=== PATIENT | female | born 1995 | race Caucasian/White ===

== ENCOUNTER 2023-10-05 05:30 | Observation (INO) | payer OTHER, SELFPAY ==
--- NOTE | ~2023-10-05 | CT_ITS ---
EXAMINATION: CT abdomen pelvis wo con DATE: 10/05/2023 09:45 INDICATION: Right upper quadrant abdominal pain TECHNIQUE: Computed tomography (CT) of the abdomen and pelvis was performed without intravenous contr ast. Automated exposure control and iterative reconstruction technique were employed. The dose-length product was 846.27 mGy-cm. COMPARISON: None FINDINGS: Lung bases are clear. Heart size is normal. No pericardial or pleural effusion. Liver, spleen, pancre as, bilateral adrenal glands and kidneys are normal. A few small calcified gallstones in the nondilat ed gallbladder. There is some gallbladder wall thickening but no evident pericholecystic inflammatory stranding. No bowel obstruction. Small calcified appendicoliths within the proximal aspect of the ot herwise normal appendix with no periappendiceal inflammation presenting to suggest acute appendicitis . Tiny dystrophic calcification at the fundus of the otherwise normal anteverted uterus. Bladder and bilateral adnexa are unremarkable. No free intraperitoneal gas or fluid. No pathologically enlarged a bdominal or pelvic lymphadenopathy. Scarring along the anterior pelvic wall suggestive of prior tegan te section. Bones are unremarkable. IMPRESSION: 1. Cholelithiasis with some wall thickening of the nondilated gallbladder which is also without surro unding inflammatory stranding. Findings suggest cholecystitis which could be either chronic, early ac inupiat or resolving acute. Correlate clinically and given the absence of gallbladder distention would co nsider HIDA scan for more definitive determination for ongoing cystic duct obstruction. Reviewed, dictated and finalized at location A. IMPRESSION: 1. Cholelithiasis with some wall thickening of the nondilated gallbladder which is also without surrounding inflammatory stranding. Findings suggest cholecyst itis which could be either chronic, early acute or resolving acute. Correlate c linically and given the absence of gallbladder distention would consider HIDA s can for more definitive determination for ongoing cystic duct obstruction.
--- NOTE | ~2023-10-05 | US_ITS ---
EXAMINATION: US abdomen limited DATE: 10/05/2023 09:41 INDICATION: Right upper quadrant abdominal pain TECHNIQUE: Multiple grayscale and Doppler ultrasound images of the abdomen were obtained. COMPARISON: None FINDINGS: Increase is normal. The abdominal aorta and visualized proximal to mid inferior vena cava are normal. Liver has normal echogenicity and contour, with a smooth surface. No liver lesion identified. No int rahepatic biliary duct dilation suspected. Portal venous flow was seen in the hepatopetal, normal dir ection and has normal Doppler waveform. Shadowing gallstones are seen within the gallbladder. The gal lbladder is not dilated but there is wall thickening and trace amount of pericholecystic fluid. Sonog raphic Maya sign was reported as positive by the digital sales assistant.Common bile duct is normal in caliber measuring up to 3 mm. IMPRESSION: 1. Cholelithiasis with positive sonographic Maya's on, mild gallbladder wall thickening and trace a mount of pericholecystic fluid suspicious for acute cholecystitis. The gallbladder is not however dil ated which would typically be seen with calculus cholecystitis. Could consider HIDA scan to assess fo r ongoing cystic duct obstruction. Reviewed, dictated and finalized at location A. IMPRESSION: 1. Cholelithiasis with positive sonographic Maya's on, mild gallbladder wall thickening and trace amount of pericholecystic fluid suspicious for acute adolfo cystitis. The gallbladder is not however dilated which would typically be seen with calculus cholecystitis. Could consider HIDA scan to assess for ongoing cys tic duct obstruction.
[2023-10-05 05:51] VITALS: BP 118/79; PULSE 69; RESP 12; O2SAT 100
--- NOTE | 2023-10-05 07:13 | ED.BACK ---
HPI - Back Pain/Injury General Chief Complaint: Back Pain/Injury Stated Complaint: back pain Time Seen by Provider: 10/05/23 06:55 History of Present Illness HPI Narrative: 28-year-old female presents to the emergency department for evaluation of right flank pain. Patient states that she did have prior history of flank pain last year was worked up for kidney stone versus kidney infection. Patient states that the symptoms started this morning. Patient denies any prior history of gallbladder disease. Related Data Home Medications Medication Instructions Recorded Confirmed No Home Medications 10/05/23 10/05/23 Allergies Allergy/AdvReac Type Severity Reaction Status Date / Time No Known Allergies Allergy Verified 10/05/23 05:50 Review of Systems Review of Systems: All systems reviewed & are unremarkable except as noted in HPI and below PMFSH Social History Social History Smoking status: Never smoker Second hand tobacco smoke exposure: No Alcohol intake: never Substance use: never Substance use type: does not use Do You Feel Safe in your Home?: Yes Lack of Transportation: YES Lack of Food: Never True Current Housing: I Have Housing Concerned About Future Housing: No Difficulty Paying Gas/Electric Bills: No Difficulty Paying for Meds: No Currently Unemployed: No Education: Bachelor's Degree Difficulty w/ Childcare or Family Care: No Spiritual care concerns: No Exam Narrative: APPEARANCE: Well appearing, no pain, no distress, well-nourished. HEAD: normocephalic, atraumatic. EYES: PERRLA/EOMI, conjunctivae clear. NOSE: Normal no drainage EARS:TMS clear with good light reflex. THROAT: Pharynx clear, no exudate. NECK: Supple. No adenopathy, no masses. RESPIRATORY: Airway patent, respirations nonlabored. Clear to auscultation bilaterally, no rales, rhonchi, wheezing. CARDIOVASCULAR: Regular rate and rhythm without murmurs rubs or gallops. ABDOMINAL: Some right flank tenderness to palpation, right upper quadrant tenderness to palpation MUSCULOSKELETAL: Moves all extremities. Strength/ROM intact, No edema, No calf tenderness. NEURO: Alert. Cranial nerves II through XII intact. SKIN: Warm, dry. Normal Color Course Course Emergency Course: Patient was admitted to surgery for suspected acute cholecystitis. Vital Signs Vital signs: Vital Signs Pulse Rate 69 10/05/23 05:51 Respiratory Rate 12 10/05/23 05:51 Blood Pressure 118/79 10/05/23 05:51 Pulse Oximetry 100 10/05/23 05:51 Temperature 97.5 F L 10/05/23 14:00 Pulse Rate 58 L 10/05/23 14:00 Respiratory Rate 16 10/05/23 14:00 Blood Pressure 100/67 10/05/23 14:00 Pulse Oximetry 100 10/05/23 14:00 Oxygen Delivery Room Air 10/05/23 14:53 MDM - Back Pain/Injury MDM Narrative Medical decision making narrative: 28-year-old female presenting to the emergency department for evaluation right upper quadrant pain. Patient is afebrile but does have a leukocytosis of 11.2 and a stable hemoglobin of 13.7. Patient does have mildly elevated transaminases and alk phos. Patient's lipase is not elevated. UA shows some uric acid crystals. Ultrasound was ordered to evaluate for acute cholecystitis and this was positive. CT scan was also ordered for the possibility ureteral calculi and no evidence of kidney stones were identified. Response to the positive ultrasound and CT scan for acute cholecystitis surgery was consulted and patient was started on Rocephin and Flagyl. Patient was admitted to Dr. Grant Differential Diagnosis Differential diagnosis: Likely sciatica, strain of lumbar region, pyelonephritis and discitis Lab Data Attestation: I reviewed the patient's lab results. 10/05/23 06:38 10/05/23 06:38 Labs: Lab Results 10/05/23 10/05/23 Range/Units 06:38 08:48 WBC 11.2 H (4.5-10.0) K/mm3 RBC 4.79 (4.2-5.4) M/mm3 Hgb 13.7 (12.0-15.0) g/
[2023-10-05] MEDS: SODIUM CHLORIDE 0.9% IV 1,000 ML 999 ML IV CONT (07:52)
[2023-10-05] MEDS: HYDROmorphone HCL INJ (*CRX) 1 MG/ML SYR 0.5 MG IV PUSH (07:52)
[2023-10-05] MEDS: ONDANSETRON INJ 4 MG/2 ML VIAL IV PUSH (07:52)
[2023-10-05 08:10] LABS: Basophils Percent Auto 0.3 % (0.2-1.2); Eosinophils Absolute Auto 0.1 K/mm3 (0-0.3); Eosinophils Percent Auto 0.8 % (0-4.4); Hematocrit 42.4 % (37.0-47.0); Hemoglobin 13.7 g/dL (12.0-15.0); Immature Granulocyte Absolute 0.04 K/mm3 (0.00-0.031); Immature Granulocyte Percent A 0.4 % (0-0.5); Mean Corpuscular HGB Conc 32.3 g/dl (32-36); Mean Corpuscular Hemoglobin 28.6 pg (26-34); Mean Corpuscular Volume 88.5 fl (80-100); Mean Platelet Volume 10.1 fl (7.4-10.4); Monocytes Absolute Auto 0.7 K/mm3 (0.1-0.6); Monocytes Percent Auto 6.4 % (2.6-8.5); Neutrophils Absolute Auto 8.6 K/mm3 (1.3-6.7); Neutrophils Percent Auto 76.1 % (45.5-73.1); Platelet Count Result 339 k/mm3 (150-375); Red Blood Count 4.79 M/mm3 (4.2-5.4); Red Cell Distribution Width 14.2 % (11.5-14.5); White Blood Count 11.2 K/mm3 (4.5-10.0)
[2023-10-05 08:19] LABS: Alanine Aminotransferase 56 U/L (6-35); Albumin Level 4.5 g/dL (3.5-5.1); Alkaline Phosphatase 167 U/L (38-126); Anion Gap 10 mmol/L (4-12); Aspartate Amino Transferase 147 U/L (14-36); Bilirubin,Total 0.9 mg/dL (0.2-1.3); Blood Urea Nitrogen 19 mg/dL (7-17); Calcium 10.4 mg/dL (8.4-10.2); Carbon Dioxide 24 mmol/L (22-30); Chloride 108 mmol/L (98-107); Estimated CRCL calculation 117 ml/min; Estimated Glomerular Filt Rate > 60; Glucose 110 mg/dL (65-110); Potassium 3.2 mmol/L (3.4-5.0); Sodium 142 mmol/L (137-145)
[2023-10-05 09:02] LABS: Appearance Urine Cloudy (Clear); Bacteria Urine 2+ /hpf; Bilirubin Urine Negative (Negative); Blood Urine Negative (Negative); Color Urine Yellow (Yellow); Glucose Urine UA Negative (Negative); Ketones Urine 1+ mg/dL (Negative); Leukocyte Esterase Ur 1+ LEU/UL (Negative); Need Manual Microscopic Reviewed; Nitrate Urine Negative (Negative); Non Pathogenic Casts 0-2; Protein Urine Trace mg/dL (Negative); RBC Urine 0-2 /hpf (0-2); Specific Grav Ur 1.027 (1.001-1.035); Squamous Epithelial Cell Urine Many /hpf (Few); Uric Acid Crystals Urine Present /hpf; pH Urine 6.5 (5.0-9.0)
[2023-10-05 09:03] LABS: Add Urine Microscopic? YES
[2023-10-05 09:13] LABS: Lipase 163 U/L (23-300)
--- NOTE | 2023-10-05 11:50 | PC.NURSE ---
discussed with pt holding flagyl since it is not compatible with nursing. report called to floor. rn states will contact surgeon to inquire about changing antibiotic.
[2023-10-05 12:09] VITALS: BP 109/72; PULSE 72; RESP 16
--- NOTE | 2023-10-05 12:14 | ADMGEN ---
This patient, Geni Sales, was admitted to 3 [facility] Surg Room 312-01 @ 1215. Patient/family oriented to hospital policies and general routines including ID bracelet, bed and alarms, visiting hours, pain management, procedures, bathroom and other care routines, personal items, smoking policy, room service/diet, and visiting hours. Information on how to activate the Rapid Response Team has been discussed. Patient/Family are encouraged to report perceived risks to care and to ask questions if they do not understand what they are told or what they should do.
[2023-10-05 12:32] VITALS: BP 100/58; PULSE 59; RESP 14; TEMP 36.2; O2SAT 98; BMI 30.7
--- NOTE | 2023-10-05 13:16 | PM.IMHP ---
H&P: HPI History of Present Illness Date/Time: 10/05/23 13:16 Meds Home Medications and Allergies Allergies Allergy/AdvReac Type Severity Reaction Status Date / Time No Known Allergies Allergy Verified 10/05/23 05:50 Vital Signs Vital Signs - 24 hr 10/05/23 05:51 10/05/23 12:09 10/05/23 12:32 Temperature 36.2 C L Pulse Rate 69 72 59 L Respiratory Rate 12 16 14 Blood Pressure 118/79 109/72 100/58 L Pulse Oximetry 100 98 H&P: Results Labs Labs: Short CBC 10/05/23 Range/Units 06:38 WBC 11.2 H (4.5-10.0) K/mm3 Hgb 13.7 (12.0-15.0) g/dL Hct 42.4 (37.0-47.0) % Plt Count 339 (150-375) k/mm3 BMP 10/05/23 06:38 Sodium 142 Potassium 3.2 L Chloride 108 H Carbon Dioxide 24 BUN 19 H Creatinine 0.70 Glucose 110 Calcium 10.4 H Liver Function 10/05/23 Range/Units 06:38 Total Bilirubin 0.9 (0.2-1.3) mg/dL AST 147 H (14-36) U/L ALT 56 H (6-35) U/L Alkaline Phosphatase 167 H (38-126) U/L Albumin 4.5 (3.5-5.1) g/dL Urine 10/05/23 Range/Units 08:48 Urine Color Yellow (Yellow) Urine Appearance Cloudy H (Clear) Urine pH 6.5 (5.0-9.0) Ur Specific [place] 1.027 (1.001-1.035) Urine Protein Trace (Negative) mg/dL Urine Glucose (UA) Negative (Negative) mg/dL
[2023-10-05 14:00] VITALS: BP 100/67; PULSE 58; RESP 16; TEMP 36.4; O2SAT 100
[2023-10-05 14:07] VITALS: BMI 30.1
--- NOTE | 2023-10-05 14:14 | ADMGEN ---
This patient, Geni Sales, was admitted to [facility] Surg Room 312-01. Patient/family oriented to hospital policies and general routines including ID bracelet, bed and alarms, visiting hours, pain management, procedures, bathroom and other care routines, personal items, smoking policy, room service/diet, and visiting hours. Information on how to activate the Rapid Response Team has been discussed. Patient/Family are encouraged to report perceived risks to care and to ask questions if they do not understand what they are told or what they should do.
[2023-10-05] MEDS: SODIUM CHLORIDE 0.9% IV 1,000 ML 125 ML IV CONT (14:39)
--- NOTE | 2023-10-05 18:24 | PM.SD2 ---
Same Day Admit/Disch: HPI History of Present Illness Chief complaint: Acute Cholecystitis Narrative: Geni Sales is a 28 year old female who presented to the ED this morning complaining of RUQ and back pain that started around 4am this morning. She had eaten togolese restaurant food for dinner last night. She has had several episodes like this before, including a couple times while she was about 6 months ago. She hadn't been worked up for this during the because it was thought to be kidney related. [facility] Past Medical History Medical History (Updated 10/05/23 @ 18:28 by Cristi Grant DO) No significant past medical history Surgical History Surgical History (Updated 10/05/23 @ 18:28 by Cristi Grant DO) Hx of section Family History Family History (Updated 10/05/23 @ 18:28 by Cristi Grant DO) Grandparent Gallbladder disease Social History Social History Smoking status: Never smoker Second hand tobacco smoke exposure: No Alcohol intake: never Substance use: never Substance use type: does not use Do You Feel Safe in your Home?: Yes Lack of Transportation: YES Lack of Food: Never True Current Housing: I Have Housing Concerned About Future Housing: No Difficulty Paying Gas/Electric Bills: No Difficulty Paying for Meds: No Currently Unemployed: No Education: Bachelor's Degree Difficulty w/ Childcare or Family Care: No Spiritual care concerns: No Same Day Admit/Disch: Med Pre-admit Medications Home Medications Medication Instructions Recorded Confirmed Type hydrocodone 5 mg-acetaminophen 325 1 tablet PO Q4H PRN pain #10 tabs 10/05/23 Rx mg tablet Review of Systems Review of Systems All systems reviewed & are unremarkable except as noted in HPI and below Constitutional Constitutional: Denies chills and Denies fever(s) Eyes Eyes: Denies change in vision ENT Denies hearing loss, Denies neck pain and Denies sore throat Cardiovascular Cardiovascular: Denies chest pain and Denies dyspnea Respiratory Respiratory: Denies cough, Denies dyspnea and Denies wheezing Gastrointestinal Gastrointestinal: Reports as per HPI Genitourinary Genitourinary: Denies hematuria and Denies dysuria Musculoskeletal Musculoskeletal: Denies arthralgias, Denies joint swelling and Denies neck pain Allergic/Immunologic Allergic/Immunologic: Denies wheezing Exam Const: General: alert; No acute distress Orientation/consciousness: patient oriented x3 Limitations: no limitations HENMT: Head: normocephalic and atraumatic Ears: hearing grossly normal bilaterally Face/Nose/Sinus: Normal external nose present and Normal nares present Mouth: Yes Normal oral and palatal mucosa present and Yes moist mucous membranes Eyes: General: appearance normal, both eyes and all related structures Conjunctivae: conjunctivae normal Sclera: sclerae normal Pupils: Equal, round and reactive pupils present EOM: EOMs intact bilaterally Neck: Neck: normal visual inspection, full ROM, no lymphadenopathy, supple and no JVD Lymphatic: no lymphadenopathy noted Chest: Chest palpation & inspection: normal inspection of the chest Resp: Effort & Inspection: normal respiratory effort and able to speak in complete sentences Auscultation: clear to auscultation bilaterally Percussion: percussion normal Cardio: Jugular venous distension: no JVD Rate: regular rate Rhythm: regular rhythm Heart sounds: S1 normal heart sound present and S2 normal heart sound present Peripheral pulses: Peripheral pulses 2+ throughout GI: Inspection: normal to inspection GI Palp: No abdominal tenderness, Yes Soft to palpation, No Guarding due to palpation present (GI), No Hernia present and No Rebound tenderness present Percussion: Yes normal to percussion Auscultation: normal bowel sounds : General: Yes no CVA tenderness Back/Spine/Pelvis: Back: no CVA tenderness Skin: General skin ex
== END 2023-10-05 19:45 | disposition home or self-care (01) ==
LOC: ANHED 07:33 → ANH3MEDSUR 11:17
PROVIDERS: Emergency Medicine; Admitting Provider Surgery; Emergency Provider Emergency Medicine; Visit Provider Surgery
DX: K81.0 Acute cholecystitis (principal)
CPT/HCPCS: 36415; 74176; 76705; 80053; 81001; 81025; 83690; 85025; 87086; 87088; 96361; 96374; 96375; 99285; G0378; J0696; J1170; J2405; J7030